=== PATIENT | male | born 2000 | race American Indian/Alaskan Native ===

== ENCOUNTER 2018-08-26 22:01 | Emergency (ER) | payer BC ==
--- NOTE | 2018-08-26 22:20 | Emergency Department Report ---
Chief Complaint: Sore Throat Stated Complaint: PAIN IN RIGHT EAR AND THROAT Time Seen by Provider: 08/26/18 22:19 - HPI History of Present Illness: pt presents for sore throat the began two weeks ago also has right ear pain states that he was seen here 3 days ago for similar sx right cerumen impaction - Exam Vital Signs: Vital Signs 08/26/18 08/26/18 22:05 22:08 Temperature 98.2 F 98.2 F Pulse Rate 89 97 H Respiratory 18 18 Rate Blood Pressure 134/79 134/79 O2 Sat by Pulse 98 98 Oximetry MSE screening note: Focused history performed Due to findings the following was ordered: mono, rapid strep ED Disposition for MSE Condition: Stable
--- NOTE | 2018-08-27 00:08 | Emergency Department Report ---
ED ENT HPI - General Chief complaint: Sore Throat Stated complaint: PAIN IN RIGHT EAR AND THROAT Time Seen by Provider: 08/26/18 22:19 Source: patient Mode of arrival: Ambulatory Limitations: No Limitations - History of Present Illness Initial comments: 18-year-old [place] male comes in with sore throat and right ear pain. Patient was seen here on Sunday for the same issue and was given a Bicillin injection and steroids. Patient reports onset was 2 weeks ago. Patient denies any fever but does admit to difficulty with urinating talking and swallowing causes pain. He has taken nothing for pain. He has a past medical history of asthma MD complaint: sore throat, ear pain -: week(s) (2) Location: R ear, throat Severity: severe Severity scale (0 -10): 10 Quality: stabbing, sharp Consistency: constant Improves with: none Worsens with: swallowing, other (yarning, talking) Associated Symptoms: pain with swallowing, sore throat - Related Data Previous Rx's Medication Instructions Recorded Last Taken Type Ibuprofen [Motrin 800 MG tab] 800 mg PO Q8HR PRN #30 tablet 08/27/18 Unknown Rx Allergies Allergy/AdvReac Type Severity Reaction Status Date / Time No Known Allergies Allergy Unverified 08/26/18 22:05 ED Dental HPI - General Chief complaint: Sore Throat Stated complaint: PAIN IN RIGHT EAR AND THROAT Time Seen by Provider: 08/26/18 22:19 Source: patient Mode of arrival: Ambulatory Limitations: No Limitations - Related Data Previous Rx's Medication Instructions Recorded Last Taken Type Ibuprofen [Motrin 800 MG tab] 800 mg PO Q8HR PRN #30 tablet 08/27/18 Unknown Rx Allergies Allergy/AdvReac Type Severity Reaction Status Date / Time No Known Allergies Allergy Unverified 08/26/18 22:05 ED Review of Systems ROS: Stated complaint: PAIN IN RIGHT EAR AND THROAT Other details as noted in HPI Comment: All other systems reviewed and negative ENT: ear pain (right), throat pain ED Past Medical Hx - Past Medical History Previous Medical History?: Yes Hx Asthma: Yes - Surgical History Past Surgical History?: No - Social History Smoking Status: Never Smoker Substance Use Type: None - Medications Home Medications: Home Medications Medication Instructions Recorded Confirmed Last Taken Type Ibuprofen [Motrin 800 MG tab] 800 mg PO Q8HR PRN #30 tablet 08/27/18 Unknown Rx ED Physical Exam - General Limitations: No Limitations General appearance: alert, in no apparent distress - Head Head exam: Present: atraumatic, normocephalic - Eye Eye exam: Present: normal appearance - ENT ENT exam: Present: mucous membranes moist - Expanded ENT Exam Expanded TM/Canal exam: Cerumen Impaction: Right TM Throat exam: Positive: tonsillomegaly. Negative: tonsillar erythema, tonsillar exudate - Neck Neck exam: Present: normal inspection, full ROM. Absent: lymphadenopathy - Cardiovascular Cardiovascular Exam: Present: regular rate, normal rhythm. Absent: systolic murmur, diastolic murmur, rubs, gallop - Neurological Exam Neurological exam: Present: alert, oriented X3 - Psychiatric Psychiatric exam: Present: normal affect, normal mood - Skin Skin exam: Present: warm, dry, intact, normal color. Absent: rash ED Course Vital Signs 08/26/18 08/26/18 22:05 22:08 Temperature 98.2 F 98.2 F Pulse Rate 89 97 H Respiratory 18 18 Rate Blood Pressure 134/79 134/79 O2 Sat by Pulse 98 98 Oximetry ED Medical Decision Making - Lab Data Lab Results 08/26/18 08/26/18 Range/Units 22:33 Unknown Monoscreen Negative (Negative) Group A Strep Rapid Negative (Negative) - Radiology Data Radiology results: report reviewed Patient: SHAWN MORAES MR#: [id number] : 2000 Acct:[id number] Age/Sex: 18 / M ADM Date: 08/26/18 Loc: ED Attending Dr: Ordering Physician: JIN BUSTAMANTE Date of Service: 08/27/18 Procedure(s): CT neck wo con Accession Number(s): [id number] cc: JIN BUSTAMANTE PROCEDURE: CT NECK WO CON TECHNIQUE: Routine axial imaging was obtained of the soft tissues of the neck without IV contrast with sagittal and coronal reconstructions. HISTORY: rt ear rt side of throat pain COMPARISONS: None FINDINGS: The study is limited without IV contrast. Images along the skull base reveal a small air-fluid level in the right maxillary sinus. There is minimal dependent secretions in the left maxillary sinus. The mastoid air cells are well pneumatized bilaterally. The airway appears normal. The epiglottis appears normal. The vocal cords and thyroid gland appear normal. The retropharyngeal space appears normal. There are bilateral calcifica tions within the tonsils bilaterally. There is no evidence of inflammation of the tonsils. The salivary glands appear normal. There is no evidence of lymphadenopathy. Lung apices are clear. The cervical spine is unremarkable. IMPRESSION: Secretions in both maxillary sinuses as described. No evidence of localized inflammatory or neoplastic process within the neck otherwise. Benign-appearing calcifications in the tonsils bilaterally. No evidence of tonsillitis otherwise.. This document is electronically signed by Korey Fritz MD., August 27 2018 01:14:15 AM ET Transcribed By: RB Dictated By: KOREY FRITZ MD Electronically Authenticated By: KOREY FRITZ MD Signed Date/Time: 08/27/18 0116 DD/ 0002 TD/TT: 08/27/18 0051 Critical care attestation.: If time is entered above; I have spent that time in minutes in the direct care of this critically ill patient, excluding procedure time. ED Disposition Clinical Impression: Impacted cerumen of right ear, Sorethroat Disposition: DC-01 TO HOME OR SELFCARE Is pt being admited?: No Does the pt Need Aspirin: No Condition: Stable Instructions: Pharyngitis (ED) Additional Instructions: Strep test negative mono test negative CT scan and negative. Take ibuprofen or Tylenol for pain management. Prescriptions: Ibuprofen [Motrin 800 MG tab] 800 mg PO Q8HR PRN #30 tablet PRN Reason: Pain , Severe (7-10) Referrals: MARLINE PERERA MD [Staff Physician] - 3-5 Days
--- NOTE | 2018-08-27 01:16 | Cat Scan Report ---
PROCEDURE: CT NECK WO CON TECHNIQUE: Routine axial imaging was obtained of the soft tissues of the neck without IV contrast wi th sagittal and coronal reconstructions. HISTORY: rt ear rt side of throat pain COMPARISONS: None FINDINGS: The study is limited without IV contrast. Images along the skull base reveal a small air-fluid level in the right maxillary sinus. There is minimal dependent secretions in the left maxillary sinus. The mastoid air cells are well pneumatized bilaterally. The airway appears normal. The epiglottis appears normal. The vocal cords and thyroid gland appear no rmal. The retropharyngeal space appears normal. There are bilateral calcifications within the tonsils bilaterally. There is no evidence of inflammation of the tonsils. The salivary glands appear normal. There is no evidence of lymphadenopathy. Lung apices are clear. The cervical spine is unremarkable. IMPRESSION: Secretions in both maxillary sinuses as described. No evidence of localized inflammatory or neoplastic process within the neck otherwise. Benign-appearing calcifications in the tonsils bilaterally. No evidence of tonsillitis otherwise.. This document is electronically signed by Ace Fritz MD., August 27 2018 01:14:15 AM ET
[2018-08-27] MEDS ORDERED: HYDROGEN PEROXIDE TP ONE (01:40)
[2018-08-27] MEDS ORDERED: HYDROGEN PEROXIDE ONE (01:48)
[2018-08-27 19:49] VITALS: BP 134/79
== END 2018-08-27 02:28 | disposition home or self-care (01) ==
LOC: EEVIPCON 22:01 → ED 22:01
DX: H61.21 Impacted cerumen, right ear (principal); J02.9 Acute pharyngitis, unspecified; J45.909 Unspecified asthma, uncomplicated
CPT/HCPCS: 36415; 70490; 86308; 87116; 87430; 99284